=== PATIENT | male | born 1955 | race Hispanic/Latino ===

== ENCOUNTER 2021-12-02 06:52 | Emergency (ER) | payer MEDICARE ==
[~2021-12-02] VITALS: Ht 185.4 cm; Wt 98.9 kg
[2021-12-02 07:22] VITALS: BP 124/72
[2021-12-02] MEDS ORDERED: CYCL10TA16 PO (07:43)
[2021-12-02] MEDS ORDERED: IBUP-2070 PO (07:43)
[2021-12-02] MEDS ORDERED: IBUPROFEN 600 MG TABLET PO ONE (08:00)
== END 2021-12-02 07:51 | disposition home or self-care (01) ==
LOC: EDH 06:52
DX: S16.1XXA Strain of muscle, fascia and tendon at neck level, initial encounter (principal); E78.00 Pure hypercholesterolemia, unspecified; I10 Essential (primary) hypertension; Z98.890 Other specified postprocedural states; V49.49XA Driver injured in collision with other motor vehicles in traffic accident, initial encounter; Y93.89 Activity, other specified; Y92.413 State road as the place of occurrence of the external cause; Y99.8 Other external cause status

== ENCOUNTER 2024-10-24 17:36 | Emergency (ER) | payer MEDICARE ==
[~2024-10-24] VITALS: Ht 185.4 cm; Wt 99.8 kg
[~2024-10-24 17:36] MED LIST: CYCL10TA16 PO; IBUP-2070 PO
[2024-10-24 18:47] LABS: BASOPHILS # (AUTO) 0.06 K/uL (0.00-0.20); BASOPHILS % (AUTO) 0.7 % (0.0-5.0); EOSINOPHILS # (AUTO) 0.27 K/uL (0.00-0.70); EOSINOPHILS % (AUTO) 3.3 % (0.0-8.0); HEMATOCRIT 40.5 % (42-54); IMMATURE GRANULOCYTE ABSOLUTE 0.03 K/uL (0-1); LYMPHOCYTES # (AUTO) 1.8 K/uL (1.0-4.8); LYMPHOCYTES % (AUTO) 21.2 % (21.0-51.0); MEAN CORPUSCULAR HEMOGLOBIN 29.9 pg (27.0-33.0); MEAN CORPUSCULAR HGB CONC 34.1 g/dL (32.0-36.0); MEAN CORPUSCULAR VOLUME 87.7 fL (79-99); MONOCYTES # (AUTO) 0.6 K/uL (0.1-1.0); MONOCYTES % (AUTO) 7.2 % (3.0-13.0); NEUTROPHILS # (AUTO) 5.6 K/uL (1.8-7.7); NEUTROPHILS % (AUTO) 67.2 % (40.0-77.0); PLATELET COUNT (AUTO) 227 K/uL (130-400); RED BLOOD CELL COUNT(AUTO) 4.62 MIL/uL (4.50-6.20); WHITE BLOOD COUNT (AUTO) 8.3 K/uL (4.8-10.8)
[2024-10-24 18:58] LABS: INR 0.96 (0.85-1.15); PROTHROMBIN TIME 10.8 SEC (9.6-11.6)
[2024-10-24 19:02] LABS: CREATININE 0.8 mg/dL (0.5-1.3)
[2024-10-24 19:07] LABS: POTASSIUM 2.9 mmol/L (3.5-5.1)
[2024-10-24 19:12] LABS: B-TYPE NATRIURETIC PEPTIDE 8 pg/mL (0-100)
[2024-10-24] MEDS: PoTASSium BIcarbonate/CIT AC 25 MEQ TABLET.EFF PO ONE (19:35)
--- NOTE | 2024-10-24 19:42 | ERN ---
General Chief Complaint: Ankle Problem Stated Complaint: ANKLE PAIN Time Seen by MD: 18:07 Time Seen by Midlevel: 18:07 Source: patient History of Present Illness Initial Comments The patient is a 69-year-old male with a past medical history of drug abuse presenting to the emergency department with left ankle swelling. The patient states the swelling was noticed by one of his friends couple of days ago and was advised to report to the ER for further evaluation. The patient is unsure how long his left ankle has been swollen. Denies any pain or redness to the area. Does report a history of venous insufficiency but has not seen a doctor for this. He does admit to consuming cocaine and meth over the last couple of days. He specifically denies any chest pain, shortness of breath, or any other symptoms at this time. Allergies: Coded Allergies: No Known Allergies (Unverified Allergy, Unknown, 12/02/21) Home Meds Active Scripts Cyclobenzaprine HCl (Flexeril) 10 Mg Tab, 10 MG PO TID, #15 TAB Prov:ROGER PAEZ MD 12/02/21 Ibuprofen (Ibuprofen) 600 Mg Tablet, 600 MG PO Q6H PRN for PAIN, #30 TAB Prov:ROGER PAEZ MD 12/02/21 Past Medical History Past Medical History: High Cholesterol, Hypertension, Prostatitis Medical History Other: PROSTATE Past Surgical History: Other Surgical History Other: HERNIA REPAIR, KNEE REPLACMENT, MENISCUS REPAIR Social History Social History: Negative, Lives with family ROS Dictation CONSTITUTIONAL: Negative except for HPI HEAD/FACE: Negative except for HPI EENT: Negative except for HPI RESPIRATORY: Negative except for HPI GASTROINTESTINAL/ABDOMINAL: Negative except for HPI GENITOURINARY: Negative except for HPI MUSCULOSKELETAL: Negative except for HPI INTEGUMENTARY: Negative except for HPI NEUROLOGICAL/PSYCH: Negative except for HPI HEMATOLOGIC/LYMPHATIC: Negative except for HPI All Systems Negative, Except as noted above. 13 point review of systems assessed and all negative except for above. Physical Exam Physical Exam Dictation Vital Signs reviewed General Appearance: Alert, oriented x 3, no acute distress, well developed, nourished. Head and Face: non-traumatic. Eyes: PERRL, pink conjunctivas, eyelid no trauma, anterior chamber with arcus senilis. Ears: Pinnas intact and no signs of trauma or erythema ear canals clear and no discharge TM no erythema Nose: No discharge, no bleeding. Oropharynx: Mouth normal, tongue pink, pharynx clear,no erythema, tonsils no exudates, no abscesses noted, mucous membrane moist Neck: Supple, non-tender, no thyromegaly, no masses, no JVD, no bruits Breast:Deferred Chest:No tenderness, no crepitus, no paradoxical movement, no retractions Lungs:Clear, well-ventilated, symmetric, no rales, no wheezing, no rhonchi, no stridor, good breath sounds bilaterally Heart: Regular rate, regular rhythm, no murmur, no gallops Vascular: Bilateral venous insufficiency, mild swelling to the left ankle Abdomen: Soft, positive bowel sounds, nondistended, no guarding, nontender, no rebound, no masses no hepatomegaly, no splenomegaly, no Pierce's sign, no hernias. Rectal: Deferred Genital: Deferred Neurological: Normal speech, motor function intact, sensory function intact Musculoskeletal: Neck nontender, full range of motion, back nontender, full range of motion, Extremities: nontender, full range of motion Skin: Color pink, dry, no turgor, no rash, no lacerations, no abrasions, no contusions. Lymphatic: Deferred Results Laboratory and Microbiology Lab and Micro Result Laboratory Tests Test 10/24/24 18:15 White Blood Count 8.3 K/uL (4.8-10.8) Red Blood Count 4.62 MIL/uL (4.50-6.20) Hemoglobin 13.8 g/dL (14.0-18.0) L Hematocrit 40.5 % (42-54) L Mean Corpuscular Volume 87.7 fL (79-99) Mean Corpuscular Hemoglobin 29.9 pg (27.0-33.0) Mean Corpuscular Hemoglobin Concent 34.1 g/dL (32.0-36.0) Red Cell Distribution Width 12.0 % (11.0-15.5) Platelet Count 227 K/uL (130-400) Mean Platelet Volume 8.9 fL (7.5-10.5) Immature Granulocyte % (Auto) 0.4 % (0-1) Neutrophils (%) (Auto) 67.2 % (40.0-77.0) Lymphocytes (%) (Auto) 21.2 % (21.0-51.0) Monocytes (%) (Auto) 7.2 % (3.0-13.0) Eosinophils (%) (Auto) 3.3 % (0.0-8.0) Basophils (%) (Auto) 0.7 % (0.0-5.0) Neutrophils # (Auto) 5.6 K/uL (1.8-7.7) Lymphocytes # (Auto) 1.8 K/uL (1.0-4.8) Monocytes # (Auto) 0.6 K/uL (0.1-1.0) Eosinophils # (Auto) 0.27 K/uL (0.00-0.70) Basophils # (Auto) 0.06 K/uL (0.00-0.20) Absolute Immature Granulocyte (auto 0.03 K/uL (0-1) Nucleated Red Blood Cells 0.0 % (0.0-0.19) Prothrombin Time 10.8 SEC (9.6-11.6) Prothromb Time International Ratio 0.96 (0.85-1.15) Activated Partial Thromboplast Time 31.0 SEC (26.3-35.5) Sodium Level 138 mmol/L (136-145) Potassium Level 2.9 mmol/L (3.5-5.1) *L Chloride Level 98 mmol/L (101-111) L Carbon Dioxide Level 33 mmol/L (21-32) H Blood Urea Nitrogen 13 mg/dL (7-18) Creatinine 0.8 mg/dL (0.5-1.3) Glomerular Filtration Rate Calc 96 mL/min (>90) Random Glucose 329 mg/dL (70-105) H Total Calcium 8.5 mg/dL (8.5-10.1) B-Type Natriuretic Peptide 8 pg/mL (0-100) Labs Reviewed?: Yes MDM MDM: The patient is a 69-year-old male with a past medical history of drug abuse presenting to the emergency department with left ankle swelling. The patient states the swelling was noticed by one of his friends couple of days ago and was advised to report to the ER for further evaluation. The patient is unsure how long his left ankle has been swollen. Denies any pain or redness to the area. Does report a history of venous insufficiency but has not seen a doctor for this. He does admit to consuming cocaine and meth over the last couple of days. He specifically denies any chest pain, shortness of breath, or any other symptoms at this time. On physical examination the patient is in no acute distress. Initial vital signs are stable. On physical examination the patient has a mild swelling to the left ankle/foot. He was obvious venous insufficiency to bilateral lower extremities. There are pedal pulses present bilaterally. Patient denies any chest pain. We obtained basic labs. CBC is unremarkable. His chemistries shows hypokalemia with a potassium of 2.9. This was replaced with 50 of effervescent p.o.. A venous Doppler was obtained to rule out a DVT. Venous Doppler does not show any evidence of a deep vein thrombosis. Symptoms most likely related to circulation. The patient will need to see his primary care doctor for further evaluation. Patient was stable for discharge at this time. Differential diagnosis: Venous insufficiency, DVT, cellulitis, There are no social concerns with this patient. Prescription drug management Prescriptions will include: None Medical management and examination interpretation discussions were had by me with other qualified healthcare professionals as indicated for the patient's care. ED Course Orders Procedure Category Date Status Time Cbc With Differential LAB 10/24/24 Complete 18:38 Basic Metabolic Panel LAB 10/24/24 Complete 18:38 B-Type Natriuretic LAB 10/24/24 Complete Peptide 18:38 Pt And Ptt LAB 10/24/24 Complete 18:38 Us Venous Doppler US 10/24/24 Taken Unilateral 18:38 Potassium Bicarb/Cit PHA 10/24/24 Complete Ac 25meq (K-Lyte Ta 19:30 Current Medications Medications (Trade) Dose Ordered Sig/Isabella Route PRN Reason Start Time Stop Time Status Last Admin Dose Admin Potassium Bicarbonate (K-Lyte Tablet Eff 25 Meq Tablet.eff) 50 meq ONCE ONCE PO 10/24/24 19:30 10/24/24 19:31 Vital Signs Date Time Temp Pulse Resp B/P (MAP) Pulse Ox O2 Delivery O2 Flow Rate FiO2 10/24/24 18:03 98.2 95 16 149/82 99 Room Air* 0 21 10/24/24 17:37 98.8 96 20 168/144 96 Room Air 0 DX & DISP Disposition: Discharge Departure Impression: Primary Impression: Venous insufficiency of both lower extremities Condition: Stable Additional Instructions: Your blood work today shows a slightly low potassium. This was replaced in the emergency department. Your left leg ultrasound does not show any evidence of a blood clot. The remainder of your blood work is stable. You will need to see your primary care doctor for further evaluation. Your symptoms are most likely caused by venous insufficiency. I advised that you were compression socks which should help improve your symptoms. Referrals: ROE DUNLAP MD (PCP) Time of Disposition: 19:40 I have reviewed the case, and I agree with, Diagnosis and Plan I performed the substantive portion of the visit. I have reviewed and personally made and approve the management plan that is documented in the note by myself or the SONIDO. I acknowledge for responsibility for the patient's management plan. REY PAEZ Oct 24, 2024 19:42
[2024-10-24 19:43] VITALS: BP 145/80; PULSE 95; RESP 16; TEMP 98.3; O2SAT 98
--- NOTE | 2024-10-24 19:55 | HMCIMG ---
US VENOUS DOPPLER UNILATERAL CLINICAL HISTORY: Left leg swelling COMPARISON: None FINDINGS: Left lower extremity venous Doppler ultrasound was performed. The greater saphenous, common femoral, deep femoral, femoral , popliteal veins are widely patent and easily compressible with the ultrasound probe. Calf veins appear normal as well. There is normal response to compression and augmentation. IMPRESSION: Normal left lower extremity venous Doppler ultrasound.
== END 2024-10-24 19:49 | disposition home or self-care (01) ==
LOC: EDH 17:36
DX: I87.2 Venous insufficiency (chronic) (peripheral) (principal); E78.00 Pure hypercholesterolemia, unspecified; I10 Essential (primary) hypertension; Z98.890 Other specified postprocedural states; Z79.899 Other long term (current) drug therapy
CPT/HCPCS: 36415; 80048; 83880; 85025; 85610; 85730; 93971; 99284

== ENCOUNTER 2025-02-03 11:59 | Emergency (ER) | payer MEDICARE ==
[~2025-02-03] VITALS: Ht 185.4 cm; Wt 99.8 kg
[2025-02-03] MEDS: TRIAMCINOLONE ACETONIDE 40 MG/ML 1ML VIAL IM ONE (12:34)
[2025-02-03] MEDS: ORPHENADRINE 60MG/2ML IM ONE (12:34)
--- NOTE | 2025-02-03 13:36 | ERN ---
ED Note History of Present Illness Stated Complaint: RIGHT KNEE AND BACK PAIN Chief Complaint: Back Pain or Injury Time Seen by MD: 12:05 Time Seen by Midlevel: 12:05 Dictation: Patient is a 69-year-old male with a history of hypertension, umbilical hernia repair who presents to the emergency department with complaints of right buttocks pain that radiates down his right leg and right knee pain. The onset was three days ago. Patient states that he has had this pain before and emesis sciatic nerve. Patient does however report that 10 days ago he had a trip and fall where he landed on that side. Denies any head trauma or LOC. Denies any neck pain, nausea or vomiting, use of blood thinners. Patient denies any other injuries from the fall. Patient denies urinary or fecal incontinence Allergies: Coded Allergies: No Known Allergies (Unverified Allergy, Unknown, 12/02/21) Home Meds Active Scripts Cyclobenzaprine HCl (Flexeril) 10 Mg Tab, 10 MG PO TID, #15 TAB Prov:ROGER PAEZ MD 12/02/21 Ibuprofen (Ibuprofen) 600 Mg Tablet, 600 MG PO Q6H PRN for PAIN, #30 TAB Prov:ROGER PAEZ MD 12/02/21 Past Medical History Past Medical History: High Cholesterol, Hypertension, Prostatitis Additional Past Medical Hx: PROSTATE Surgical History: Other Surgical History Other: HERNIA REPAIR, KNEE REPLACMENT, MENISCUS REPAIR Social History: Negative, Lives with family RN Note Reviewed/Agreed w/PFSH: Yes Review of System Dictation Constitutional: Negative for fever,chills, and weight loss Eyes: Negative for injury, pain,redness, and discharge ENT: Negative for injury,pain or swelling Cardiovascular: Negative for chest pain, palpitations, and edema Respiratory: Negative for shortness of breath, cough, and wheezing, Abdomen/GI: Negative for abdominal pain, nausea, vomiting, diarrhea, and constipation Back: Negative for injury and pain : Negative for injury, bleeding and discharge MS/Extremity: Positive for right hip pain, right knee pain Skin: Negative for rash, and discoloration Neuro: Negative for headache, weakness, numbness, tingling, and seizure Psych: Negative for suicide ideation, homicidal ideation, and hallucinations Initial Vital Sign VS Vital Signs Date Time Temp Pulse Resp B/P (MAP) Pulse Ox O2 Delivery O2 Flow Rate FiO2 02/03/25 12:00 98.4 94 22 147/87 98 Room Air Physical Exam Dictation Vital Signs reviewed General Appearance: Alert, oriented x 3, no acute distress, well developed, nourished. Head and Face: non-traumatic. Eyes: PERRL, pink conjunctivas, eyelid no trauma, anterior chamber with arcus senilis. Ears: Pinnas intact and no signs of trauma or erythema ear canals clear and no discharge TM no erythema Nose: No discharge, no bleeding. Oropharynx: Mouth normal, tongue pink. pharynx clear,no erythema, tonsils no exudates, no abscesses noted, mucous membrane moist Neck: Supple, non-tender, no thyromegaly, no masses, no JVD, no bruits Breast:Deferred Chest:No tenderness, no crepitus, no paradoxical movement, no retractions Lungs:Clear, well-ventilated, symmetric, no rales, no wheezing, no rhonchi, no stridor, good breath sounds bilaterally Heart: Regular rate, regular rhythm, no murmur, no gallops Vascular: no peripheral edema, dorsalis pedis 3+ bilaterally Abdomen: Soft, positive bowel sounds, nondistended, no guarding, nontender, no rebound, no masses no hepatomegaly, no splenomegaly, no Pierce's sign, no hernias. Rectal: Deferred Genital: Deferred Neurological: Normal speech, motor function intact, sensory function intact Musculoskeletal: Neck nontender, full range of motion, back nontender, full range of motion, Extremities: nontender, full range of motion , no swelling to knee, full range of motion, tenderness to palpation, no open wounds, right hip tenderness to palpation Skin: Color pink, dry, no turgor, no rash, no lacerations, no abrasions, no contusions. Lymphatic: Deferred Results (Laboratory/Radiology) Labs Reviewed?: Yes ED Course ED Course Orders Procedure Category Date Status Time Knee 3vws Rt RAD 02/03/25 Resulted 12:16 Hip Unilat 2-3vw Right RAD 02/03/25 Resulted 12:16 Orphenadrine Citrate PHA 02/03/25 Complete (Norflex) 12:30 Triamcinolone Acet PHA 02/03/25 Complete 40mg/Ml 1ml (Kenalog 12:30 Ketorolac PHA 02/03/25 Complete Tromethamine 15mg/Ml 15:30 Morphine 2mg Syg PHA 02/03/25 Complete (Morphine 2mg Syg) 15:30 Current Medications Medications (Trade) Dose Ordered Sig/Isabella Route PRN Reason Start Time Stop Time Status Last Admin Dose Admin Ketorolac Tromethamine (toRADol) 15 mg ONCE ONCE IM 02/03/25 15:30 02/03/25 15:31 DC 02/03/25 15:38 Morphine Sulfate (morPHINE 2MG SYG) 2 mg ONCE ONCE IM 02/03/25 15:30 02/03/25 15:31 DC 02/03/25 15:37 Orphenadrine Citrate (Norflex) 60 mg ONCE ONCE IM 02/03/25 12:30 02/03/25 12:31 DC 02/03/25 12:34 Triamcinolone Acetonide (Kenalog 40) 40 mg ONCE ONCE IM 02/03/25 12:30 02/03/25 12:31 DC 02/03/25 12:34 Vital Signs Date Time Temp Pulse Resp B/P (MAP) Pulse Ox O2 Delivery O2 Flow Rate FiO2 02/03/25 12:00 98.4 94 22 147/87 98 Room Air Medical Decision Making MDM Patient is a 69-year-old male with a history of hypertension, umbilical hernia repair who presents to the emergency department with complaints of right buttocks pain that radiates down his right leg and right knee pain. The onset was three days ago. Patient states that he has had this pain before and emesis sciatic nerve. Patient does however report that 10 days ago he had a trip and fall where he landed on that side. Denies any head trauma or LOC. Denies any neck pain, nausea or vomiting, use of blood thinners. Patient denies any other injuries from the fall. Patient denies urinary or fecal incontinence Differential diagnosis: Sciatic nerve pain, knee contusion, hip fracture Need for hospitalization: Patient does not meet criteria for hospitalization. There are no social concerns with this patient. DX & DISP Disposition: Discharge Departure Impression: Primary Impression: Right sciatic nerve pain Additional Impression: Right knee pain Condition: Stable Scripts Lidocaine (Lidocaine) 4 % Adh..patch 1 PATCH TP DAILY for 10 Days, #10 PATCH 0 Refills Prov: KEISHA BOUCHER ROCK LATHER 02/03/25 Cyclobenzaprine HCl (Flexeril) 10 Mg Tab 10 MG PO TID for muscle sstiffness, #14 TAB 0 Refills Prov: KEISHA BOUCHER 02/03/25 Additional Instructions: Please follow up with your primary doctor in 1-2 days. If symptoms worsen please return to ER. FOLLOW-UP WITH PRIMARY CARE PROVIDER IN 1 TO 2 DAYS. TAKE MEDICATIONS DIRECTED HERE IN THE EMERGENCY ROOM. OKAY TO CONTINUE HOME MEDICATIONS UNLESS OTHERWISE DISCUSSED DURING YOUR VISIT IN THE EMERGENCY ROOM TODAY. RETURN TO YOUR NEAREST EMERGENCY ROOM IF SYMPTOMS WORSEN OR IF THERE IS NO IMPROVEMENT. CALL 911 IF YOU NEED IMMEDIATE ASSISTANCE. TAKE TYLENOL OR MOTRIN [id number] NEEDED AND IF NO CONTRAINDICATIONS ARE PRESENT. INCREASE ORAL HYDRATION. A WOUND CULTURE OR URINE CULTURE WAS ORDERED HERE IN THE EMERGENCY ROOM DEPARTMENT PLEASE FOLLOW-UP WITH PRIMARY CARE PROVIDER AND ADVISE THEM TO GET REPEAT PORTS FROM OUR FACILITY. IF YOU HAD ANY SHAHZAD WRAP/SPLINTS THAT WERE APPLIED HERE, PLEASE DO NOT REMOVE THEM UNTIL YOU SEE YOUR PRIMARY CARE OR SPECIALTY. Referrals: ROE DUNLAP MD (PCP) Time of Disposition: 16:00 I have reviewed the case, and I agree with, Diagnosis and Plan KEISHA BOUCHER February 03, 2025 13:36
--- NOTE | 2025-02-03 15:20 | HMCIMG ---
HIP UNILAT 2-3VW RIGHT HISTORY: Pain COMPARISON: None TECHNIQUE: 2 images of the right hip were obtained. FINDINGS: There is no acute displaced fracture or dislocation. Degenerative changes are seen. IMPRESSION: 1. Findings as described above.
--- NOTE | 2025-02-03 15:22 | HMCIMG ---
KNEE 3VWS RT HISTORY: Pain COMPARISON: None TECHNIQUE: 3 images of right knee were obtained. FINDINGS: medial femorotibial joint space narrowing is seen. There is no acute displaced fracture or dislocation. Degenerative changes are seen. IMPRESSION: 1. Findings as described above.
[2025-02-03] MEDS: morPHINE 2 MG SYG IM ONE (15:37)
[2025-02-03] MEDS: ketOROlac 15MG/ML VIAL (15MG/ML) IM ONE (15:38)
[2025-02-03] MEDS ORDERED: LIDO1ADH82 TP (16:00)
[2025-02-03] MEDS ORDERED: CYCL10TA16 PO (16:00)
[2025-02-03 16:09] VITALS: BP 137/85; PULSE 86; RESP 20; TEMP 98.4; O2SAT 98
== END 2025-02-03 16:12 | disposition home or self-care (01) ==
LOC: EDH 11:59
DX: M54.31 Sciatica, right side (principal); M25.561 Pain in right knee; E78.00 Pure hypercholesterolemia, unspecified; I10 Essential (primary) hypertension; Z79.899 Other long term (current) drug therapy; Z98.890 Other specified postprocedural states
CPT/HCPCS: 99284; 73502; 73562; 96372 ×4; J1885; J2270; J3301; J2360

== ENCOUNTER 2025-02-07 21:49 | Emergency (ER) | payer MEDICARE ==
[~2025-02-07] VITALS: Ht 185.4 cm; Wt 98.4 kg
[~2025-02-07 21:49] MED LIST changes: +LIDO1ADH82 TP
[2025-02-07 21:50] VITALS: BP 158/90; PULSE 76; RESP 16; TEMP 98
[2025-02-07] MEDS ORDERED: ORPHENADRINE 60MG/2ML IM ONE (22:00)
[2025-02-07] MEDS ORDERED: LIDOCAINE 4% ADH..PATCH TP ONE (22:00)
[2025-02-07] MEDS ORDERED: TRIAMCINOLONE ACETONIDE 40 MG/ML 1ML VIAL IM ONE (22:00)
[2025-02-07] MEDS ORDERED: ketOROlac 30MG VIAL (30MG/ML) IM ONE (22:30)
--- NOTE | 2025-02-07 22:56 | ERN ---
ED Note History of Present Illness Stated Complaint: RT LEG PAIN Chief Complaint: Lower Extremity Pain/Injury Time Seen by MD: 21:50 Time Seen by Midlevel: 21:50 Dictation: Patient is a 69-year-old male with a history of sciatic nerve pain who presents to the emergency department with right buttocks pain that radiates down his right leg onset nine days ago. Patient denies any urinary or fecal incontinence. Reports he was seen here earlier this month. Patient had x-ray since it showed no fractures. And discharged with sciatic nerve pain. Patient denies any recent trauma. Allergies: Coded Allergies: No Known Allergies (Unverified Allergy, Unknown, 12/02/21) Home Meds Active Scripts Lidocaine (Lidocaine) 4 % Adh..patch, 1 PATCH TP DAILY for 10 Days, #10 PATCH 0 Refills Prov:KEISHA BOUCHER [employer]ITION SCIENTIST 02/03/25 Cyclobenzaprine HCl (Flexeril) 10 Mg Tab, 10 MG PO TID for muscle sstiffness, #14 TAB 0 Refills Prov:KEISHA BOUCHER 02/03/25 Cyclobenzaprine HCl (Flexeril) 10 Mg Tab, 10 MG PO TID, #15 TAB Prov:ROGER PAEZ MD 12/02/21 Ibuprofen (Ibuprofen) 600 Mg Tablet, 600 MG PO Q6H PRN for PAIN, #30 TAB Prov:ROGER PAEZ MD 12/02/21 Past Medical History Past Medical History: High Cholesterol, Hypertension, Prostatitis Additional Past Medical Hx: PROSTATE, SCIATIC Surgical History: Other Surgical History Other: HERNIA REPAIR, KNEE REPLACMENT, MENISCUS REPAIR Social History: Negative, Lives with family RN Note Reviewed/Agreed w/PFSH: Yes Review of System Dictation Constitutional: Negative for fever,chills, and weight loss Eyes: Negative for injury, pain,redness, and discharge ENT: Negative for injury,pain or swelling Cardiovascular: Negative for chest pain, palpitations, and edema Respiratory: Negative for shortness of breath, cough, and wheezing, Abdomen/GI: Negative for abdominal pain, nausea, vomiting, diarrhea, and constipation Back: Negative for injury and pain : Negative for injury, bleeding and discharge positive for right buttocks pain MS/Extremity: Negative for injury and deformity Skin: Negative for rash, and discoloration Neuro: Negative for headache, weakness, numbness, tingling, and seizure Psych: Negative for suicide ideation, homicidal ideation, and hallucinations Initial Vital Sign VS Vital Signs Date Time Temp Pulse Resp B/P (MAP) Pulse Ox O2 Delivery O2 Flow Rate FiO2 02/07/25 21:50 98.1 76 16 158/90 99 Room Air Physical Exam Dictation Vital Signs reviewed General Appearance: Alert, oriented x 3, no acute distress, well developed, nourished. Head and Face: non-traumatic. Eyes: PERRL, pink conjunctivas, eyelid no trauma, anterior chamber with arcus senilis. Ears: Pinnas intact and no signs of trauma or erythema ear canals clear and no discharge TM no erythema Nose: No discharge, no bleeding. Oropharynx: Mouth normal, tongue pink. pharynx clear,no erythema, tonsils no exudates, no abscesses noted, mucous membrane moist Neck: Supple, non-tender, no thyromegaly, no masses, no JVD, no bruits Breast:Deferred Chest:No tenderness, no crepitus, no paradoxical movement, no retractions Lungs:Clear, well-ventilated, symmetric, no rales, no wheezing, no rhonchi, no stridor, good breath sounds bilaterally Heart: Regular rate, regular rhythm, no murmur, no gallops Vascular: no peripheral edema, dorsalis pedis 2+ bilaterally Abdomen: Soft, positive bowel sounds, nondistended, no guarding, nontender, no rebound, no masses no hepatomegaly, no splenomegaly, no Pierce's sign, no hernias. Rectal: Deferred Genital: Deferred Neurological: Normal speech, motor function intact, sensory function intact Musculoskeletal: Neck nontender, full range of motion, back nontender, full range of motion, tenderness to right buttocks Extremities: nontender, full range of motion Skin: Color pink, dry, no turgor, no rash, no lacerations, no abrasions, no contusions. Lymphatic: Deferred Results (Laboratory/Radiology) Labs Reviewed?: Yes ED Course ED Course Orders Procedure Category Date Status Time Orphenadrine Citrate PHA 02/07/25 Complete (Norflex) 22:00 Triamcinolone Acet PHA 02/07/25 Complete 40mg/Ml 1ml (Kenalog 22:00 Lidocaine (Lidocaine PHA 02/07/25 Complete Patch 4%) 22:00 Ketorolac PHA 02/07/25 Complete Tromethamine 30mg/Ml 22:30 Current Medications Medications (Trade) Dose Ordered Sig/Isabella Route PRN Reason Start Time Stop Time Status Last Admin Dose Admin Ketorolac Tromethamine (toRADol) 30 mg ONCE ONCE IM 02/07/25 22:30 02/07/25 22:31 DC Lidocaine (Lidocaine Patch 4%) 1 each ONCE ONCE TP 02/07/25 22:00 02/07/25 22:04 DC Orphenadrine Citrate (Norflex) 60 mg ONCE ONCE IM 02/07/25 22:00 02/07/25 22:04 DC Triamcinolone Acetonide (Kenalog 40) 40 mg ONCE ONCE IM 02/07/25 22:00 02/07/25 22:04 DC Vital Signs Date Time Temp Pulse Resp B/P (MAP) Pulse Ox O2 Delivery O2 Flow Rate FiO2 02/07/25 21:50 98.1 76 16 158/90 99 Room Air Medical Decision Making MDM Patient is a 69-year-old male with a history of sciatic nerve pain who presents to the emergency department with right buttocks pain that radiates down his right leg onset nine days ago. Patient denies any urinary or fecal incontinence. Reports he was seen here earlier this month. Patient had x-ray since it showed no fractures. And discharged with sciatic nerve pain. Patient denies any recent trauma. Differential diagnosis: Sciatic nerve pain, piriformis syndrome, arthritis Was informed by staff that patient eloped from ER DX & DISP Disposition: AMA Departure Condition: Stable Referrals: ROE DUNLAP MD (PCP) I have reviewed the case, and I agree with, Diagnosis and Plan KEISHA BOUCHER [employer] N[employer]ITION SCIENTIST February 07, 2025 22:56
--- NOTE | 2025-02-07 23:11 | NUR ---
PT CALLED, NO ANSWER. NOT IN LOBBY, NOT IN RESTROOM. SPOKE WITH [place] IN SECURITY. STATES PT VOICED HE WAS GOING TO BE LEAVING AND WALKED OUT. PT DID NOT COMMUNICATE WITH NURSING STAFF DESIRE TO LEAVE
== END 2025-02-07 23:20 | disposition left against medical advice (07) ==
LOC: EDH 21:49
DX: M79.604 Pain in right leg (principal); E78.00 Pure hypercholesterolemia, unspecified; I10 Essential (primary) hypertension; Z98.890 Other specified postprocedural states; Z79.899 Other long term (current) drug therapy
CPT/HCPCS: 99281